=== PATIENT | female | born 1995 | race Two or more races ===

== ENCOUNTER 2017-04-22 10:12 | Emergency (ER) | payer MEDICAID ==
[~2017-04-22] VITALS: Ht 170.2 cm; Wt 56.7 kg
[2017-04-22 12:05] VITALS: BP 123/70
== END 2017-04-22 12:05 | disposition home or self-care (01) ==
LOC: ED 10:12
DX: R45.7 State of emotional shock and stress, unspecified (principal); F31.9 Bipolar disorder, unspecified; F20.9 Schizophrenia, unspecified; Z79.899 Other long term (current) drug therapy

== ENCOUNTER 2019-11-09 12:36 | Emergency (ER) | payer OTHER ==
[~2019-11-09] VITALS: Ht 170.2 cm; Wt 68.0 kg
[2019-11-09 12:40] VITALS: Ht 170.2 cm; Wt 68.0 kg
[2019-11-09 13:30] LABS: BASOPHIL % 0.8 % (0-2); PLATELET COUNT 321 x10^3mcL (130-400)
[2019-11-09 13:38] LABS: CALCIUM 8.9 mg/dL (8.5-10.1); CARBON DIOXIDE 26.3 mmol/L (21-32); CHLORIDE SERUM 104 mmol/L (98-107); CREATININE SERUM 0.6 mg/dL (0.6-1.0); GFR1 > 60 mL/min; GLUCOSE SERUM 88 mg/dL (74-106); POTASSIUM SERUM 3.8 mmol/L (3.5-5.1); SODIUM SERUM 139 mmol/L (136-145)
[2019-11-09 13:45] LABS: ALBUMIN 3.4 g/dL (3.4-5.0); ALKALINE PHOSPHATASE 64 U/L (46-116); ALT/SGPT 37 U/L (14-59); AST/SGOT 33 U/L (15-37); BILIRUBIN TOTAL 0.1 mg/dL (0.20-1.00); TOTAL PROTEIN, SERUM 7.9 g/dL (6.4-8.2)
[2019-11-09 14:16] LABS: AMPHETAMINE QUAL UR NONE DETECTED (See below)
[2019-11-09 17:21] VITALS: BP 122/86
== END 2019-11-09 17:21 | disposition home or self-care (01) ==
LOC: ED 12:36
PROVIDERS: Emergency Medicine
DX: F32.9 Major depressive disorder, single episode, unspecified (principal)
CPT/HCPCS: 36415; G0480

== ENCOUNTER 2020-01-05 20:18 | Inpatient (IN) | payer OTHER ==
[~2020-01-05] VITALS: Ht 170.2 cm; Wt 79.8 kg
[2020-01-05 20:26] VITALS: Ht 170.2 cm; Wt 79.8 kg
[2020-01-05 21:31] LABS: BASOPHIL % 0.6 % (0-2); PLATELET COUNT 293 x10^3mcL (130-400); RED CELL DISTRIBUTION WIDTH 12.8 % (11.5-14.5)
[2020-01-05 21:53] LABS: AMPHETAMINE QUAL UR NONE DETECTED (See below)
[2020-01-05 22:04] LABS: CALCIUM 8.8 mg/dL (8.5-10.1); CHLORIDE SERUM 105 mmol/L (98-107); CREATININE SERUM 0.9 mg/dL (0.6-1.0); GFR1 > 60 mL/min; GLUCOSE SERUM 89 mg/dL (74-106); POTASSIUM SERUM 3.5 mmol/L (3.5-5.1); SODIUM SERUM 143 mmol/L (136-145)
[2020-01-05 22:23] LABS: ALBUMIN 3.9 g/dL (3.4-5.0); ALKALINE PHOSPHATASE 82 U/L (46-116); ALT/SGPT 34 U/L (14-59); AST/SGOT 26 U/L (15-37); BILIRUBIN TOTAL 0.21 mg/dL (0.20-1.00); TOTAL PROTEIN, SERUM 7.8 g/dL (6.4-8.2)
[2020-01-05 23:01] LABS: FREE T4 1.34 ng/dL (0.76-1.46)
[2020-01-07 04:41] VITALS: BP 119/67
[2020-01-07 07:15] VITALS: BP 99/57
[2020-01-07 13:12] VITALS: BP 126/70
[2020-01-08 06:44] VITALS: BP 115/73
[2020-01-08 09:00] VITALS: BP 118/84
[2020-01-08 17:59] VITALS: BP 133/88
[2020-01-08 21:00] VITALS: BP 154/96
[2020-01-09 05:54] VITALS: BP 137/85
[2020-01-09 09:51] VITALS: BP 126/81
[2020-01-09] MEDS ORDERED: RIS1 PO (10:07)
[2020-01-09 14:30] VITALS: BP 132/76
[2020-01-09 17:30] VITALS: BP 134/85
== END 2020-01-09 18:00 | DRG 812 ==
LOC: ED 20:18 → MU 01-07 03:16
PROVIDERS: Emergency Medicine; ADMIT Internal Medicine
DX: T50.992A Poisoning by other drugs, medicaments and biological substances, intentional self-harm, initial encounter (principal); G92 Toxic encephalopathy; F31.9 Bipolar disorder, unspecified; F20.9 Schizophrenia, unspecified; S50.812A Abrasion of left forearm, initial encounter; F12.10 Cannabis abuse, uncomplicated; X78.1XXA Intentional self-harm by knife, initial encounter; Y93.89 Activity, other specified; Y92.89 Other specified places as the place of occurrence of the external cause; Y99.8 Other external cause status; Z82.49 Family history of ischemic heart disease and other diseases of the circulatory system; Z23 Encounter for immunization; Z79.899 Other long term (current) drug therapy
CPT/HCPCS: 84439; 90715; G0378; G0480

== ENCOUNTER 2020-04-22 20:17 | Emergency (ER) | payer OTHER ==
[~2020-04-22] VITALS: Ht 172.7 cm; Wt 79.4 kg
[~2020-04-22 20:17] MED LIST: RIS1 PO
[2020-04-22 20:25] VITALS: Ht 172.7 cm; Wt 79.4 kg
[2020-04-22 21:05] LABS: BASOPHIL % 0.4 % (0-2); PLATELET COUNT 293 x10^3mcL (130-400); RED CELL DISTRIBUTION WIDTH 14.2 % (11.5-14.5)
[2020-04-22 21:30] LABS: ALBUMIN 3.9 g/dL (3.4-5.0); ALKALINE PHOSPHATASE 73 U/L (46-116); ALT/SGPT 32 U/L (14-59); AST/SGOT 42 U/L (15-37); CALCIUM 9.4 mg/dL (8.5-10.1); CARBON DIOXIDE 29.4 mmol/L (21-32); CREATININE SERUM 1.1 mg/dL (0.6-1.0); GFR1 > 60 mL/min; GLUCOSE SERUM 82 mg/dL (74-106)
[2020-04-22 21:34] LABS: TOTAL PROTEIN, SERUM 8.5 g/dL (6.4-8.2)
[2020-04-22 21:41] LABS: CHLORIDE SERUM 100 mmol/L (98-107); POTASSIUM SERUM 3.1 mmol/L (3.5-5.1); SODIUM SERUM 138 mmol/L (136-145)
[2020-04-23 03:15] LABS: AMPHETAMINE QUAL UR NONE DETECTED (See below)
[2020-04-23 03:23] LABS: UA SPECIFIC GRAVITY >=1.030 (1.005-1.035); microscopic required? YES; urine erythrocyte TRACE (NEGATIVE)
[2020-04-23 23:05] VITALS: BP 126/67
== END 2020-04-22 23:05 ==
LOC: ED 20:17
PROVIDERS: Emergency Medicine
DX: F23 Brief psychotic disorder (principal); Z20.828 Contact with and (suspected) exposure to other viral communicable diseases
CPT/HCPCS: G0480; J2060; J3486; J7030; U0003-CS